=== PATIENT | male | born 1960 | race African-American/Black ===

== ENCOUNTER 2020-08-29 13:50 | Emergency (ER) | payer MEDICAID ==
[~2020-08-29] VITALS: Ht 185.4 cm; Wt 86.4 kg
[2020-08-29 14:45] LABS: BASOPHILS # (AUTO) 0.1 X10'3 (0-0.2); BASOPHILS % (AUTO) 0.9 % (0-1); EOSINOPHILS # (AUTO) 0.1 X10'3 (0-0.9); EOSINOPHILS % (AUTO) 1.6 % (0-6); HEMATOCRIT 40.7 % (42.0-52.0); HEMOGLOBIN 14.1 g/dl (14.0-17.9); LYMPHOCYTES # (AUTO) 1.5 X10'3 (1.1-4.8); LYMPHOCYTES % (AUTO) 24.8 % (21-51); MEAN CORPUSCULAR HEMOGLOBIN 32.7 PG (27.0-31.0); MEAN CORPUSCULAR HGB CONC 34.5 g/dL (33.0-36.5); MEAN CORPUSCULAR VOLUME 94.8 FL (78-98); MEAN PLATELET VOLUME 7.9 FL (7.4-10.4); MONOCYTES # (AUTO) 0.4 X10'3 (0-0.9); MONOCYTES % (AUTO) 6.8 % (2-12); NEUTROPHILS # (AUTO) 3.9 X10'3 (1.8-7.7); NEUTROPHILS % (AUTO) 65.9 % (42-75); PLATELET COUNT 232 X10'3 (140-440); RED CELL DISTRIBUTION WIDTH 13.9 % (11.5-14.5); WHITE BLOOD COUNT 5.9 X10'3 (4.5-11.0)
[2020-08-29 14:58] LABS: ALANINE AMINOTRANSFERASE 40 U/L (12-78); ALBUMIN 3.9 G/DL (3.4-5.0); ALBUMIN/GLOBULIN RATIO 0.9 (1.1-1.5); ALKALINE PHOSPHATASE 68 IU/L (46-116); ANION GAP 8 (8-16); ASPARTATE AMINO TRANSFERASE 37 U/L (10-37); BILIRUBIN,TOTAL 0.8 MG/DL (0.1-1.0); BLOOD UREA NITROGEN 16 MG/DL (7-18); BUN/CREATININE RATIO 11.7 (5.4-32.0); CALCIUM 9.2 MG/DL (8.5-10.1); CHLORIDE 101 MMOL/L (99-107); CREATININE 1.37 MG/DL (0.60-1.10); GLUCOSE 81 MG/DL (70-104); POTASSIUM 4.1 MMOL/L (3.5-5.1); SODIUM 137 MMOL/L (135-145); TOTAL CARBON DIOXIDE 27.6 MMOL/L (24-32); TOTAL PROTEIN 8.1 G/DL (6.4-8.2); eGFR 53 ML/MIN
[2020-08-29] MEDS ORDERED: METF500T PO (15:00)
[2020-08-29] MEDS ORDERED: LISI40TA4 PO (15:00)
[2020-08-29] MEDS ORDERED: OMEP20CA15 PO (15:00)
[2020-08-29 15:02] LABS: CLARITY,URINE CLEAR (Clear); COLOR,URINE YELLOW (Yellow); GLUCOSE, URINE NEGATIVE (Neg); KETONES,URINE NEGATIVE (Neg); LEUKOCYTE ESTERASE ,URINE NEGATIVE (Neg); NITRITES, URINE NEGATIVE (Neg); OCCULT BLOOD,URINE NEGATIVE (Neg); PH,URINE 5.5 (4.8-8.0); PROTEIN,URINE NEGATIVE (Neg); UROBILINOGEN,URINE 0.2 E.U/dL (0.2-1.0)
[2020-08-29 15:06] LABS: URINE AMPHETAMINE SCREEN NEGATIVE (Neg); URINE BARBITUATE SCREEN NEGATIVE (Neg); URINE BENZODIAZEPINES SCREEN NEGATIVE (Neg); URINE CANNABINOID SCREEN POSITIVE (Neg); URINE COCAINE SCREEN NEGATIVE (Neg); URINE METHADONE SCREEN NEGATIVE (Neg); URINE OPIATE SCREEN NEGATIVE (Neg); URINE PHENCYCLIDINE SCREEN NEGATIVE (Neg)
[2020-08-29 15:08] LABS: ETHANOL < 0.010 GM/DL (0.0-0.010)
[2020-08-29] MEDS ORDERED: PROP10TA10 PO (15:08)
[2020-08-29] MEDS ORDERED: ATOM100C PO (15:08)
[2020-08-29] MEDS ORDERED: FLO0.4C PO (15:08)
[2020-08-29] MEDS ORDERED: HYDR-3686 PO (15:08)
[2020-08-29] MEDS ORDERED: FLUO60TA PO (15:08)
--- NOTE | 2020-08-29 15:28 | NUR ---
Patient brought to bed 23 ambulatory. Patient is cooperative with admission process. Sleeping on right side.
[2020-08-29 15:31] LABS: UA COLLECTION TYPE CLN CATCH MIDSTREAM
--- NOTE | 2020-08-29 16:57 | NUR ---
Patient up to restroom with walker. Steady on feet. Has been sleeping in bed.
[2020-08-29] MEDS ORDERED: pantoprazole 40mg Tablet.DR PO ONE (17:10)
[2020-08-29] MEDS: metFORMIN 500mg tablet PO SCH (17:23)
--- NOTE | 2020-08-29 17:32 | NUR ---
Patient c/o GI distress. Normally takes protonix, but has not taken it since Thursday. One time dose administered. Patient having snack at present.
[2020-08-29] MEDS: propranolol 10mg tablet PO SCH (19:38)
[2020-08-29] MEDS: hydrOXYzine 25 MG tablet PO SCH ×2 (19:39→21:00)
[2020-08-29] MEDS ORDERED: hydrOXYzine 25 MG tablet PO SCH (21:00)
[2020-08-30 05:49] VITALS: BP_DIAS 87
[2020-08-30] MEDS ORDERED: atomoxetine 25mg capsule PO SCH (08:00)
[2020-08-30] MEDS ORDERED: pantoprazole 40mg Tablet.DR PO SCH (08:00)
[2020-08-30] MEDS ORDERED: FLUoxetine 20mg capsule PO SCH (08:00)
[2020-08-30] MEDS ORDERED: lisinopril 20mg tablet PO SCH (08:00)
[2020-08-30] MEDS ORDERED: tamsulosin 0.4mg capsule PO SCH (08:00)
[2020-08-30 08:24] VITALS: BP_SYST 134
[2020-08-30] MEDS: propranolol 10mg tablet PO SCH (08:24)
[2020-08-30] MEDS: metFORMIN 500mg tablet PO SCH (08:24)
--- NOTE | 2020-08-30 08:31 | NUR ---
PT HAS EATEN BREAKFAST AND NOW AMB WITH WALKER TO THE BATHROOM. PT FRIENDLY AND TALKATIVE WITH RN. TALKING ABOUT HIS FAMILY AND WANTS TO GET BACK [place] TO BE WITH HIS DAUGHTER AND GRANDSON. PT WAITING FOR [facility] TO BE EVALUATED.
--- NOTE | 2020-08-30 08:38 | NUR ---
PT GIVEN HYGIENE MATERIALS FOR BRUSHING TEETH AND WASHING UP.
--- NOTE | 2020-08-30 09:05 | NUR ---
[facility] CLINICIAN IN TO LORENAL PT.
--- NOTE | 2020-08-30 13:25 | NUR ---
PT EATING LUNCH AND WILL BE DC AFTER EATING.
== END 2020-08-30 14:23 | disposition home or self-care (01) ==
LOC: ER 13:51
DX: F32.9 Major depressive disorder, single episode, unspecified (principal); R45.851 Suicidal ideations; F41.9 Anxiety disorder, unspecified; Z59.0 Homelessness; Z79.899 Other long term (current) drug therapy
CPT/HCPCS: 36415; 80053; 80305; 80320; 81003; 84443; 85025; 99285; Q0177

== ENCOUNTER 2021-03-30 10:07 | Emergency (ER) | payer MEDICAID ==
[~2021-03-30] VITALS: Ht 185.4 cm; Wt 109.1 kg
[~2021-03-30 10:07] MED LIST: ATOM100C PO; FLO0.4C PO; FLUO60TA PO; HYDR-3686 PO; LISI40TA13 PO; METF500T PO; OMEP20CA15 PO; PROP10TA10 PO
[2021-03-30 10:19] VITALS: BP 150/82
[2021-03-30] MEDS ORDERED: CLIN-97 PO ×3 (11:48→11:55)
== END 2021-03-30 12:13 | disposition home or self-care (01) ==
LOC: ER 10:08
DX: K13.0 Diseases of lips (principal)
CPT/HCPCS: 10060; 99284

== ENCOUNTER 2021-04-15 09:29 | Emergency (ER) | payer MEDICAID ==
[~2021-04-15] VITALS: Ht 185.4 cm; Wt 85.0 kg
[~2021-04-15 09:29] MED LIST changes: +CLIN-97 PO
[2021-04-15 10:25] LABS: CLARITY,URINE CLEAR (Clear); COLOR,URINE YELLOW (Yellow); GLUCOSE, URINE NEGATIVE (Neg); KETONES,URINE NEGATIVE (Neg); LEUKOCYTE ESTERASE ,URINE NEGATIVE (Neg); NITRITES, URINE NEGATIVE (Neg); OCCULT BLOOD,URINE NEGATIVE (Neg); PROTEIN,URINE NEGATIVE (Neg); UA COLLECTION TYPE URINAL; UROBILINOGEN,URINE 0.2 E.U/dL (0.2-1.0)
[2021-04-15 10:33] LABS: BASOPHILS # (AUTO) 0.1 X10'3 (0-0.2); BASOPHILS % (AUTO) 1.8 % (0-1); EOSINOPHILS # (AUTO) 0.3 X10'3 (0-0.9); EOSINOPHILS % (AUTO) 6.4 % (0-6); HEMATOCRIT 31.7 % (42.0-52.0); HEMOGLOBIN 10.6 g/dl (14.0-17.9); LYMPHOCYTES % (AUTO) 22.7 % (21-51); MEAN CORPUSCULAR HEMOGLOBIN 29.3 PG (27.0-31.0); MEAN CORPUSCULAR HGB CONC 33.5 g/dL (33.0-36.5); MEAN CORPUSCULAR VOLUME 87.5 FL (78-98); MEAN PLATELET VOLUME 7.9 FL (7.4-10.4); MONOCYTES # (AUTO) 0.5 X10'3 (0-0.9); MONOCYTES % (AUTO) 11.7 % (2-12); NEUTROPHILS # (AUTO) 2.5 X10'3 (1.8-7.7); NEUTROPHILS % (AUTO) 57.4 % (42-75); PLATELET COUNT 195 X10'3 (140-440); RED BLOOD COUNT 3.62 X10'6 (4.70-6.10); RED CELL DISTRIBUTION WIDTH 13.8 % (11.5-14.5); WHITE BLOOD COUNT 4.4 X10'3 (4.5-11.0)
[2021-04-15 10:39] LABS: ALANINE AMINOTRANSFERASE 27 U/L (12-78); ALBUMIN 3.6 G/DL (3.4-5.0); ALBUMIN/GLOBULIN RATIO 0.9 (1.1-1.5); ALKALINE PHOSPHATASE 75 IU/L (46-116); ANION GAP 7 (8-16); ASPARTATE AMINO TRANSFERASE 17 U/L (10-37); BILIRUBIN,TOTAL 0.3 MG/DL (0.1-1.0); BLOOD UREA NITROGEN 16 MG/DL (7-18); BUN/CREATININE RATIO 10.5 (5.4-32.0); CALCIUM 8.7 MG/DL (8.5-10.1); CHLORIDE 107 MMOL/L (99-107); CREATININE 1.53 MG/DL (0.60-1.10); GLUCOSE 147 MG/DL (70-104); SODIUM 141 MMOL/L (135-145); TOTAL CARBON DIOXIDE 27.3 MMOL/L (24-32); TOTAL PROTEIN 7.4 G/DL (6.4-8.2); eGFR 56 ML/MIN
[2021-04-15 11:09] VITALS: BP 141/79
== END 2021-04-15 11:10 | disposition home or self-care (01) ==
LOC: ER 09:29
DX: R10.2 Pelvic and perineal pain (principal); R59.1 Generalized enlarged lymph nodes; R10.30 Lower abdominal pain, unspecified; M19.90 Unspecified osteoarthritis, unspecified site; F32.9 Major depressive disorder, single episode, unspecified; Z59.0 Homelessness; Z79.2 Long term (current) use of antibiotics; Z79.899 Other long term (current) drug therapy
CPT/HCPCS: 36415; 76881; 80053; 81003; 85025; 99284

== ENCOUNTER 2022-06-05 00:20 | Emergency (ER) | payer MEDICAID ==
[~2022-06-05] VITALS: Ht 185.4 cm; Wt 109.1 kg
[2022-06-05 00:30] VITALS: BP 142/90
== END 2022-06-05 01:15 ==
LOC: ER 00:21
DX: I10 Essential (primary) hypertension (principal); F10.929 Alcohol use, unspecified with intoxication, unspecified; Y90.9 Presence of alcohol in blood, level not specified; M19.90 Unspecified osteoarthritis, unspecified site; Z59.00 Homelessness unspecified
CPT/HCPCS: 99284

== ENCOUNTER 2023-01-22 00:54 | Emergency (ER) | payer MEDICAID ==
[~2023-01-22] VITALS: Ht 185.4 cm; Wt 103.6 kg
[2023-01-22] MEDS ORDERED: LORazepam 2 mg/ml vial IM ONE (01:10)
[2023-01-22 01:49] LABS: BASOPHILS # (AUTO) 0.1 X10'3 (0-0.2); BASOPHILS % (AUTO) 1.3 % (0-1); EOSINOPHILS # (AUTO) 0.1 X10'3 (0-0.9); EOSINOPHILS % (AUTO) 2.1 % (0-6); HEMATOCRIT 36.9 % (42.0-52.0); HEMOGLOBIN 12.3 g/dl (14.0-17.9); LYMPHOCYTES # (AUTO) 1.8 X10'3 (1.1-4.8); LYMPHOCYTES % (AUTO) 29.2 % (21-51); MEAN CORPUSCULAR HEMOGLOBIN 28.9 PG (27.0-31.0); MEAN CORPUSCULAR HGB CONC 33.3 g/dL (33.0-36.5); MEAN CORPUSCULAR VOLUME 86.7 FL (78-98); MEAN PLATELET VOLUME 7.2 FL (7.4-10.4); MONOCYTES # (AUTO) 0.5 X10'3 (0-0.9); MONOCYTES % (AUTO) 7.3 % (2-12); NEUTROPHILS # (AUTO) 3.7 X10'3 (1.8-7.7); NEUTROPHILS % (AUTO) 60.1 % (42-75); PLATELET COUNT 229 X10'3 (140-440); RED BLOOD COUNT 4.26 X10'6 (4.70-6.10); RED CELL DISTRIBUTION WIDTH 21.4 % (11.5-14.5); WHITE BLOOD COUNT 6.2 X10'3 (4.5-11.0)
[2023-01-22 02:00] LABS: ALANINE AMINOTRANSFERASE 45 U/L (12-78); ALBUMIN 4.3 G/DL (3.4-5.0); ALKALINE PHOSPHATASE 56 IU/L (46-116); ANION GAP 11 (8-16); ASPARTATE AMINO TRANSFERASE 30 U/L (10-37); BILIRUBIN,TOTAL 0.7 MG/DL (0.1-1.0); BLOOD UREA NITROGEN 22 MG/DL (7-18); BUN/CREATININE RATIO 16.1 (5.4-32.0); CALCIUM 8.6 MG/DL (8.5-10.1); CHLORIDE 97 MMOL/L (99-107); CREATININE 1.37 MG/DL (0.60-1.10); ETHANOL 0.188 GM/DL (0.0-0.010); GLUCOSE 108 MG/DL (70-104); POTASSIUM 4.2 MMOL/L (3.5-5.1); SODIUM 130 MMOL/L (135-145); TOTAL CARBON DIOXIDE 22.5 MMOL/L (24-32); TOTAL PROTEIN 8.5 G/DL (6.4-8.2); eGFR 64 ML/MIN
--- NOTE | 2023-01-22 02:11 | NUR ---
patient making rude comments to female staff, needed to be re directed, patient observably under the influence of etoh
[2023-01-22 02:14] LABS: URINE AMPHETAMINE SCREEN NEGATIVE (Neg); URINE BARBITUATE SCREEN NEGATIVE (Neg); URINE BENZODIAZEPINES SCREEN NEGATIVE (Neg); URINE CANNABINOID SCREEN POSITIVE (Neg); URINE COCAINE SCREEN NEGATIVE (Neg); URINE METHADONE SCREEN NEGATIVE (Neg); URINE OPIATE SCREEN NEGATIVE (Neg); URINE PHENCYCLIDINE SCREEN NEGATIVE (Neg)
[2023-01-22] MEDS ORDERED: normal saline 1000ML IV soln IV ONE (02:35)
[2023-01-22 02:56] LABS: ANISOCYTOSIS 3+; ELLIPTOCYTES FEW; PLATELET ESTIMATE NORMAL; TEAR DROP CELLS FEW
--- NOTE | 2023-01-22 02:58 | NUR ---
patient refused iv md aware
--- NOTE | 2023-01-22 04:26 | NUR ---
PATIENT IN BED EYES CLOSED NO NEEDS AT THIS TIME WAITING FOR RIDE
[2023-01-22 05:12] VITALS: BP 158/94
== END 2023-01-22 06:05 | disposition home or self-care (01) ==
LOC: ER 00:55
DX: F10.920 Alcohol use, unspecified with intoxication, uncomplicated (principal); F31.9 Bipolar disorder, unspecified; Z79.899 Other long term (current) drug therapy; Y90.9 Presence of alcohol in blood, level not specified
CPT/HCPCS: 36415; 80053; 80305; 80320; 85008; 85025; 96372; 99284; J2060

== ENCOUNTER 2024-04-13 08:05 | Day surgery (SDC) | payer MEDICAID ==
[~2024-04-13] VITALS: Ht 185.4 cm; Wt 109.0 kg
[~2024-04-13 08:05] MED LIST changes: +NAPR-996 PO
[2024-04-13] MEDS ORDERED: ASPI-611 PO (08:27)
[2024-04-13] MEDS ORDERED: ATOR20TA66 PO (08:28)
[2024-04-13] MEDS ORDERED: BALS750C PO (08:28)
[2024-04-13] MEDS ORDERED: BUPR-114 PO (08:29)
[2024-04-13] MEDS ORDERED: DAPA10TA PO (08:30)
[2024-04-13] MEDS ORDERED: CARV3.122 PO (08:30)
[2024-04-13] MEDS ORDERED: FERR324T4 PO (08:31)
[2024-04-13] MEDS ORDERED: FLUO90CA4 PO (08:31)
[2024-04-13] MEDS ORDERED: [UNRECOGNIZED DRUG - CODE] PO (08:32)
[2024-04-13] MEDS ORDERED: HYDR50TA65 PO (08:33)
[2024-04-13] MEDS ORDERED: LAMO300T2 PO (08:34)
[2024-04-13] MEDS ORDERED: LISI10TA27 PO (08:34)
[2024-04-13] MEDS ORDERED: NAPR220C62 PO (08:35)
[2024-04-13] MEDS ORDERED: MESA1.2T3 PO (08:35)
[2024-04-13] MEDS ORDERED: OMEP-271 PO (08:36)
[2024-04-13] MEDS ORDERED: VITD400T PO (08:37)
[2024-04-13 08:46] VITALS: BP 126/74; PULSE 84; RESP 19
[2024-04-13] MEDS ORDERED: diphenhydrAMINE 50 mg/ml inj ONE (09:25)
[2024-04-13] MEDS ORDERED: LIDOcaine 2% Viscous 15ml cup ONE (09:25)
[2024-04-13] MEDS ORDERED: MIDAZolam 1 MG/ML 5ML VIAL ONE (09:25)
[2024-04-13] MEDS ORDERED: fentaNYL/PF 50MCG/1 ML 2ML syringe ONE (09:25)
[2024-04-13 09:54] VITALS: BP 124/80; PULSE 97; RESP 14; O2SAT 97
[2024-04-13 10:04] VITALS: BP 126/83; PULSE 71; RESP 12; O2SAT 100
[2024-04-13 10:14] VITALS: BP 124/82; PULSE 78; RESP 14; O2SAT 98
[2024-04-13 10:24] VITALS: BP 124/80; PULSE 74; RESP 16; O2SAT 98
== END 2024-04-13 10:43 | disposition home or self-care (01) ==
LOC: GI LAB 08:05
PROVIDERS: ATTEND Internal Medicine Gastroenterology
DX: K30 Functional dyspepsia (principal); K21.01 Gastro-esophageal reflux disease with esophagitis, with bleeding; K31.89 Other diseases of stomach and duodenum
CPT/HCPCS: 43239; J1200; J2250; J3010; J7030; Z7512; 99152; A4620